=== PATIENT | male | born 1985 ===

== ENCOUNTER 2022-09-02 14:44 | Emergency (ER) | payer SELFPAY ==
[~2022-09-02 14:44] MED LIST: EPINEPHrine 1 MG/10 ML Abboject SYRINGE ONE; Lidocaine 2% PF 100 mg/5 ml Syringe ONE; Magnesium 5 GM/10 ML Abboject SYRINGE ONE
[2022-09-02] MEDS ORDERED: Heparin 10,000 UNITS/ 10 ML VIAL ONE (14:45)
[2022-09-02] MEDS ORDERED: Lidocaine 1% (PF) 30 ML VIAL ONE (14:45)
[2022-09-02] MEDS ORDERED: Nitroglycerin 50 MG/250 ML BOT 0 ML ONE (14:45)
[2022-09-02] MEDS ORDERED: Adenosine 6 MG/2 ML VIAL ONE (14:46)
[2022-09-02] MEDS ORDERED: Sodium Chloride 0.9% 1,000 ML ONE (14:46)
[2022-09-02] MEDS ORDERED: Heparin 5,000 UNITS/ML VIAL ONE (14:53)
[2022-09-02] MEDS ORDERED: Aspirin 300 MG Suppository ONE (15:59)
== END 2022-09-02 15:25 | disposition expired ==
LOC: CSHERS 14:44
DX: I46.9 Cardiac arrest, cause unspecified (principal)
CPT/HCPCS: 31500; 36416; J0153; J0171; J1644; J2001; J3475; J7050